=== PATIENT | male | born 1970 | race African-American/Black ===

== ENCOUNTER 2020-06-26 11:40 | Emergency (ER) | payer OTHER, MEDICAID ==
[~2020-06-26] VITALS: Ht 172.7 cm; Wt 77.1 kg
[~2020-06-26 11:40] MED LIST: HIV MEDS; MUCINEX600 MG PO; TESSALON PERLE100 MG PO; VENTOLIN HFA INH8 GM IH; ZPAK PO
[2020-06-26 12:33] LABS: ABSOLUTE LYMPHOCYTES 2.1 thou/uL (0.8-5.3); ABSOLUTE MONOCYTES 0.8 thou/uL (0.0-1.2); ABSOLUTE NEUTROPHILS 7.4 thou/uL (1.6-8.1); BASOPHILS 0.4 %; EOSINOPHILS 0.1 %; HEMATOCRIT 43.9 % (42.0-52.0); HEMOGLOBIN 14.6 gm/dL (14.0-18.0); LYMPHOCYTES 20.5 %; MCH 26.8 pg (26.0-34.0); MCHC 33.3 g/dL (28.0-37.0); MCV 80.5 fL (80.0-100.0); MONOCYTES 7.7 %; MPV 8.2 fl. (7.2-11.1); NUCLEATED RBCS 0 /100WBC; PLATELET COUNT* 316 thou/uL (150-400); POLYS 71.3 %; RBC 5.45 mil/uL (4.50-6.00); RDW-CV 13.4 % (10.5-14.5); WBC 10.3 thou/uL (4.0-11.0)
[2020-06-26 12:40] LABS: CALCIUM 8.8 mg/dL (8.5-10.1); CREATININE 1.8 mg/dL (0.6-1.3); POTASSIUM 3.9 mmol/L (3.5-5.1)
[2020-06-26 12:50] LABS: ALBUMIN 3.9 g/dL (3.4-5.0); MAGNESIUM 2.1 mg/dL (1.8-2.4); TOTAL BILIRUBIN 0.4 mg/dL (<0.1-1.0); TOTAL PROTEIN 8.2 g/dL (6.4-8.2)
[2020-06-26] MEDS ORDERED: NORCO 5-325 TA1 EAC2 PO (12:56)
[2020-06-26 13:24] VITALS: BP 128/94
--- NOTE | 2020-06-26 15:24 | EKG ---
[place] [address] ELECTROCARDIOGRAM REPORT Name: ROSALINDA SPRAGUE Room: [facility]#: [id number] Admission: 06/26/20 Attend Phys: Discharge: 06/26/20 Date of : 68 Date of Service: 06/26/20 1144 Report #: [id number] THIS REPORT FOR: //name// [facility] ED Test Date: 2020-06-26 Test Time: 11:44:36 Pat Name: ROSALINDA SPRAGUE Department: Room: Gender: [place] [facility] [place] 1970 Requested By: Joe Turner Order Number: [id number] MD: Vladimir Matias Measurements Intervals [place] Rate: 62 P: 68 TN: 177 QRS: 59 QRSD: 98 T: 60 QT: 427 QTc: 434 Interpretive Statements Sinus rhythm Left ventricular hypertrophy ST elev, probable normal early repol pattern No previous ECG available for comparison Electronically Signed On 06-26-2020 15:23:55 CDT by Vladimir Matias [email or web address] <ELECTRONICALLY SIGNED> By: Vladimir Matias MD, [facility] 06/26/20 1523 1144 1144 Vladimir Matias MD, [facility] /EPI
== END 2020-06-26 13:26 | disposition home or self-care (01) ==
LOC: M.ERS 11:40
PROVIDERS: Emergency Medicine Emergency Medical Services
DX: R07.89 Other chest pain (principal)

== ENCOUNTER 2021-06-04 13:35 | Emergency (ER) | payer OTHER, MEDICAID ==
[~2021-06-04] VITALS: Ht 172.7 cm; Wt 77.1 kg
[~2021-06-04 13:35] MED LIST changes: +NORCO 5-325 TA1 EAC2 PO
[2021-06-04] MEDS ORDERED: NAPROSYN500 M1 PO (15:40)
[2021-06-04] MEDS ORDERED: FLEXERIL PO (15:42)
[2021-06-04 15:52] VITALS: BP 120/79
== END 2021-06-04 15:53 | disposition home or self-care (01) ==
LOC: M.ERS 13:35
DX: M25.572 Pain in left ankle and joints of left foot (principal); V89.2XXA Person injured in unspecified motor-vehicle accident, traffic, initial encounter; Y93.I9 Activity, other involving external motion; Y92.413 State road as the place of occurrence of the external cause; Y99.8 Other external cause status